=== PATIENT | male | born 1970 | race Caucasian/White ===

== ENCOUNTER 2021-09-04 00:42 | Day surgery (SDC) | payer OTHER, SELFPAY ==
[2021-08-24 11:05] VITALS: BMI 39.9
[2021-09-04 10:15] VITALS: BP 148/85; PULSE 82; RESP 18; TEMP 36.1; O2SAT 98; BMI 38.5
--- NOTE | 2021-09-04 10:35 | WPDANESEPPF ---
Anes - Initial Pre Proc Eval Procedure: Operation Date: 09/04/21 12:30 Proposed Procedures p Screening Colonoscopy - Fernando Otto MD Date/Time: 09/04/21 10:35 Surgeon: Fernando Otto MD Pre Op Diagnosis: family hx of colon ca Patient Data Age: 51 Gender: M Height: 1.8 m Weight: 125.3 kg Last Vital Signs Temp 36.1 C L 09/04/21 10:15 Pulse 82 09/04/21 10:15 Resp 18 09/04/21 10:15 BP 148/85 H 09/04/21 10:15 Pulse Ox 98 09/04/21 10:15 Allergies Allergy/AdvReac Type Severity Reaction Status Date / Time Penicillins Allergy Unknown Unknown Verified 09/04/21 10:25 Home Medications Medication Instructions Recorded Confirmed Type evolocumab 140 mg/mL subcutaneous 140 mg SUB-Q .BI-Weekly ml 11/24/19 09/04/21 History syringe losartan-hydrochlorothiazide 1 tablet PO DAILY 08/24/21 09/04/21 History [Hyzaar] Patient hx anesthesia problems: none Family hx anesthesia problems: none Results Review: All pre-operative results and documents have been reviewed as part of the pre-operative evaluation. [facility] Past Medical History Medical History (Updated 10/06/20 @ 12:12 by JEFF Trinidad) Morbid obesity Obesity, morbid, BMI 40.0-49.9 Social History Social History Smoking status: Never smoker Alcohol intake: current Drinks per week: 2 Living arrangements: with family Spiritual care concerns: No Anes - Eval Final PreProcedure Day of Procedure 09/04/21 10:35 Patient weight: obese Heart: regular rate and rhythm Lungs: clear to auscultation Airway: Mallampati scale class II Neurological: alert and oriented Last oral intake: >/= 8 hours ASA classification: III Emergent: no Anesthetic plan: proceed Anesthesia type and monitoring: general GIVS and standard monitoring Results Review: All pre-operative results and documents have been reviewed as part of the pre-operative evaluation. Informed Consent: The patient's anesthetic plan and its attendant risks and benefits were discussed with the patient/family/POA. Questions were solicited and answers provided to the satisfaction of the patient/family/POA.
[2021-09-04] MEDS: LACTATED RINGERS 1,000 ML 150 ML IV CONT (10:36)
--- NOTE | 2021-09-04 10:59 | PM.HPGS ---
History of Present Illness History of Present Illness Consent: Risks, benefits, and alternatives have been discussed and questions answered. Patient agrees to proceed with procedure. Chief complaint: family hx of colon ca Narrative: Pancho Shoemaker is a 51 year old male here for colonoscopy, mother had colon cancer. Review of Systems Constitutional: Constitutional: Denies headache(s) and Denies weakness Eyes: Eyes: Denies blurry vision ENT: Reports Normal hearing present, Denies headache(s) and Denies neck pain Cardiovascular: Cardiovascular: Denies chest pain and Denies dyspnea Respiratory: Respiratory: Denies dyspnea Gastrointestinal: Gastrointestinal: Reports no additional gastrointestinal complaints Genitourinary: Genitourinary: Denies dysuria Musculoskeletal: Musculoskeletal: Denies neck pain Integumentary/Breasts: Skin/Breast: Denies dry skin Neurologic: Reports Normal hearing present, Denies headache(s) and Denies weakness Psychiatric: Psychiatric: Denies anxiety Endocrine: Endocrine: Denies change in body appearance Hematologic/Lymphatic: Hematologic/Lymphatic: Denies easy bleeding Allergic/Immunologic: Allergic/Immunologic: Denies urticaria PMFSH Past Medical History Medical History (Updated 10/06/20 @ 12:12 by JEFF Trinidad) Morbid obesity Obesity, morbid, BMI 40.0-49.9 Social History Social History Smoking status: Never smoker Alcohol intake: current Drinks per week: 2 Living arrangements: with family Spiritual care concerns: No Meds Home Medications and Allergies Home Medications Medication Instructions Recorded Confirmed Type evolocumab 140 mg/mL subcutaneous 140 mg SUB-Q .BI-Weekly ml 11/24/19 09/04/21 History syringe losartan-hydrochlorothiazide 1 tablet PO DAILY 08/24/21 09/04/21 History [Hyzaar] Allergies Allergy/AdvReac Type Severity Reaction Status Date / Time Penicillins Allergy Unknown Unknown Verified 09/04/21 10:25 Vital Signs Vital Signs - 24 hr 09/04/21 10:15 Temperature 96.9 F L Pulse Rate 82 Respiratory Rate 18 Blood Pressure 148/85 H Pulse Oximetry 98 Exam Const: General: comfortable and no acute distress HENMT: General nose exam: Normal nares present Eyes: General: appearance normal, both eyes and all related structures Neck: Neck: no JVD Resp: Auscultation: clear to auscultation bilaterally Cardio: Rate: regular rate Rhythm: regular rhythm GI: Inspection: non-distended GI Palp: Yes Soft to palpation Skin: General skin exam: normal color Neuro: General: gait normal Speech: normal speech Extrem: General: normal to inspection Psych: Mental Status: mental status grossly normal Assessment and Plan Assessment and plan (1) Family history of colon cancer: Code(s): Z80.0 - Family history of malignant neoplasm of digestive organs Status: Acute Assessment and Plan: colonoscopy
[2021-09-04 11:25] VITALS: BP 124/97; PULSE 73; RESP 18; O2SAT 97
[2021-09-04 11:35] VITALS: BP 128/83; PULSE 70; RESP 16; O2SAT 97
[2021-09-04 11:45] VITALS: BP 130/89; PULSE 66; RESP 16; O2SAT 98
== END 2021-09-04 11:57 | disposition home or self-care (01) ==
PROVIDERS: PCP Family Medicine; Visit Provider Internal Medicine Gastroenterology
PROC: 0DJD8ZZ Inspection of Lower Intestinal Tract, Via Natural or Artificial Opening Endoscopic (ICD-10-PCS; CPT 45378; principal; 2021-09-04 12:30)
DX: Z12.11 Encounter for screening for malignant neoplasm of colon (principal); Z80.0 Family history of malignant neoplasm of digestive organs; D12.4 Benign neoplasm of descending colon; D12.3 Benign neoplasm of transverse colon; K63.5 Polyp of colon; E66.9 Obesity, unspecified; Z68.38 Body mass index [BMI] 38.0-38.9, adult
CPT/HCPCS: 45385; 88305; J2001; J2704; J7120

== ENCOUNTER → 2022-05-21 15:10 | Outpatient (CLI) | payer OTHER, SELFPAY ==
--- NOTE | ~2022-05-21 | US_ITS ---
EXAMINATION: US soft tissue groin RT INDICATION: Right groin pain TECHNIQUE: High-resolution ultrasound is performed in the area of clinical concern in the right groin COMPARISON: None available FINDINGS: No sonographic correlate is identified for the patient's right groin pain. Normal right duc in soft tissues and vasculature are seen. IMPRESSION: 1. No specific sonographic correlate is identified for the reported right groin pain. Further evaluat ion at this time should be based on clinical assessment. Continued follow-up physical examination is recommended. Reviewed, dictated and finalized at location B. IMPRESSION: 1. No specific sonographic correlate is identified for the reported right groin pain. Further evaluation at this time should be based on clinical assessment. Continued follow-up physical examination is recommended.
== END ==
PROVIDERS: PCP Family Medicine; Visit Provider Nurse Practitioner Family
DX: R10.30 Lower abdominal pain, unspecified (principal)
CPT/HCPCS: 76882

== ENCOUNTER 2024-12-14 00:16 | Day surgery (SDC) | payer OTHER, SELFPAY ==
[2024-12-06 10:46] VITALS: BMI 37.8
--- OUTSIDE RECORDS SUMMARY | 2024-12-14 00:19 | XMS_ITS | Clinical Summary ---
Author Organization [facility] Address [address] [place] [address] Phone Care Team Providers Care Document Examiner Name Role Phone Unavailable Primary Care Provider Unavailabl e Social History Tobacco Use Types Packs/Day Years Used Date Smoking Tobacco: Never Assessed Sex and Gender Information Value Date Recorded Sex Assigned at Not on file Legal Sex Male 10:47 AM CDT Gender Identity Not on file Sexual Orientation Not on file Plan of Treatment Health Maintenance Due Date Last Done Comments DTAP/TDAP/TD VACCINES (1 - Tdap) 1989 HEPATITIS B VACCINES (1 of 3 - 19+ 3-dose series) 1989 COLORECTAL SCREENING 2015 Colorectal Cancer Screening 2015 FIT-DNA Q 3 years 2015 FIT/FOBT Q 1 year 2015 Flex Sig/CT Colonography Q 5 years 2015 ZOSTER VACCINE (1 of 2) 2020 INFLUENZA VACCINE (#1) 2024 PNEUMOCOCCAL VACCINE 0-49 YEARS Aged Out No longer eligible based on patient's age to complete this topic
[2024-12-14 06:56] VITALS: BP 139/90; PULSE 72; RESP 18; TEMP 36.1; O2SAT 97; BMI 38.7
[2024-12-14] MEDS: LACTATED RINGERS 1,000 ML 150 ML IV CONT (07:05)
[2024-12-14 07:10] LABS: Glucose Point of Care 145 mg/dl (65-105)
--- NOTE | 2024-12-14 07:10 | WPDANESEPPF ---
Anes - Initial Pre Proc Eval Procedure: Operation Date: 12/14/24 08:00 Proposed Procedures p Colonoscopy - Fernando Otto MD Date/Time: 12/14/24 07:10 Surgeon: Fernando Otto MD Pre Op Diagnosis: Family history of neoplasm Patient Data Age: 54 Gender: M Height: 1.8 m Weight: 125.8 kg Last Vital Signs Temp 36.1 C L 12/14/24 06:56 Pulse 72 12/14/24 06:56 Resp 18 12/14/24 06:56 BP 139/90 12/14/24 06:56 Pulse Ox 97 12/14/24 06:56 O2 Del Method Room Air 12/14/24 06:56 Allergies Allergy/AdvReac Type Severity Reaction Status Date / Time Penicillins Allergy Unknown Unknown Verified 12/14/24 06:55 Home Medications ?Medication ?Instructions ?Recorded ?Confirmed ?Type omeprazole 40 mg capsule,delayed 40 mg PO DAILY #90 caps 09/13/24 12/14/24 Rx release losartan 50 mg-hydrochlorothiazide See Rx Instructions .Route 09/26/24 12/14/24 Rx 12.5 mg tablet .COMPLEX #90 tabs evolocumab 140 mg/mL subcutaneous 140 mg subcut .bi weekly #2 mL 10/16/24 12/14/24 Rx pen injector (Repatha SureClick) tirzepatide 10 mg/0.5 mL 10 mg (0.5 mL) subcut WEEKLY #2 mL 11/08/24 12/14/24 Rx subcutaneous pen injector (Mounjaro) Laboratory Tests 12/14/24 07:07 POC Capillary Glucose 145 H mg/dl (65-105) Patient hx anesthesia problems: none Family hx anesthesia problems: none Results Review: All pre-operative results and documents have been reviewed as part of the pre-operative evaluation. [facility] Past Medical History Medical History BMI 38.0-38.9,adult GERD (gastroesophageal reflux disease) Adenomatous colon polyp Irritable bowel syndrome with diarrhea Groin pain BMI 39.0-39.9,adult Other hyperlipidemia Family History Family History Father Mother Carcinoma of colon Sibling No problems noted. Social History Social History Smoking status: Never smoker Second hand tobacco smoke exposure: Yes Alcohol intake: current Drinks per week: 2 Substance use: never Substance use type: does not use Lack of Transportation: No Lack of Food: Never True Current Housing: I Have Housing Concerned About Future Housing: No Difficulty Paying Gas/Electric Bills: No Difficulty Paying for Meds: No Currently Unemployed: No Education: Bachelor's Degree Difficulty w/ Childcare or Family Care: No Living arrangements: with family Occupation/Education: occupation Additional occupation/education comments: [employer] Gender identity (if verbalized by the patient): Male Spiritual care concerns: No Anes - Eval Final PreProcedure Day of Procedure 12/14/24 07:10 Patient weight: obese Heart: regular rate and rhythm Lungs: clear to auscultation Airway: Mallampati scale class II Neurological: alert and oriented Last oral intake: >/= 8 hours ASA classification: III Emergent: no Anesthetic plan: proceed Anesthesia type and monitoring: general GIVS and standard monitoring Results Review: All pre-operative results and documents have been reviewed as part of the pre-operative evaluation. Informed Consent: The patient's anesthetic plan and its attendant risks and benefits were discussed with the patient/family/POA. Questions were solicited and answers provided to the satisfaction of the patient/family/POA.
--- NOTE | 2024-12-14 08:01 | PM.HPGS ---
History of Present Illness History of Present Illness Consent: Risks, benefits, and alternatives have been discussed and questions answered. Patient agrees to proceed with procedure. Chief complaint: Family history of neoplasm Narrative: Pancho Shoemaker is a 54 year old male with colon polyp in 2020, mother had colon cancer Review of Systems Review of Systems: All systems reviewed & are unremarkable except as noted in HPI and below PMFSH Past Medical History Medical History BMI 38.0-38.9,adult GERD (gastroesophageal reflux disease) Adenomatous colon polyp Irritable bowel syndrome with diarrhea Groin pain BMI 39.0-39.9,adult Other hyperlipidemia Family History Family History Father Mother Carcinoma of colon Sibling No problems noted. Social History Social History Smoking status: Never smoker Second hand tobacco smoke exposure: Yes Alcohol intake: current Drinks per week: 2 Substance use: never Substance use type: does not use Lack of Transportation: No Lack of Food: Never True Current Housing: I Have Housing Concerned About Future Housing: No Difficulty Paying Gas/Electric Bills: No Difficulty Paying for Meds: No Currently Unemployed: No Education: Bachelor's Degree Difficulty w/ Childcare or Family Care: No Living arrangements: with family Occupation/Education: occupation Additional occupation/education comments: [employer] Gender identity (if verbalized by the patient): Male Spiritual care concerns: No Meds Home Medications and Allergies Home Medications ?Medication ?Instructions ?Recorded ?Confirmed ?Type omeprazole 40 mg capsule,delayed 40 mg PO DAILY #90 caps 09/13/24 12/14/24 Rx release losartan 50 mg-hydrochlorothiazide See Rx Instructions .Route 09/26/24 12/14/24 Rx 12.5 mg tablet .COMPLEX #90 tabs evolocumab 140 mg/mL subcutaneous 140 mg subcut .bi weekly #2 mL 10/16/24 12/14/24 Rx pen injector (Jeffery Kwok) tirzepatide 10 mg/0.5 mL 10 mg (0.5 mL) subcut WEEKLY #2 mL 11/08/24 12/14/24 Rx subcutaneous pen injector (Tien) Allergies Allergy/AdvReac Type Severity Reaction Status Date / Time Penicillins Allergy Unknown Unknown Verified 12/14/24 06:55 Vital Signs Vital Signs - 24 hr 12/14/24 06:56 Temperature 97 F L Pulse Rate 72 Respiratory Rate 18 Blood Pressure 139/90 Pulse Oximetry 97 Oxygen Delivery Room Air Exam Const: General: comfortable and no acute distress HENMT: Face/Nose/Sinus: Normal nares present Eyes: General: appearance normal, both eyes and all related structures Neck: Neck: no JVD Resp: Auscultation: clear to auscultation bilaterally Cardio: Rate: regular rate Rhythm: regular rhythm GI: Inspection: non-distended GI Palp: Yes Soft to palpation Skin: General skin exam: normal color Neuro: General: gait normal Speech: normal speech Extrem: General: normal to inspection Psych: Mental Status: mental status grossly normal Assessment and Plan Assessment and plan (1) Family history of colon cancer: Code(s): Z80.0 - Family history of malignant neoplasm of digestive organs Status: Acute Assessment and Plan: colonoscopy (2) Adenomatous colon polyp: Code(s): D12.6 - Benign neoplasm of colon, unspecified Status: Acute
[2024-12-14 08:18] VITALS: BP 116/78; PULSE 76; RESP 20; O2SAT 98
[2024-12-14 08:28] VITALS: BP 114/76; PULSE 77; RESP 22; O2SAT 100
[2024-12-14 08:38] VITALS: BP 132/86; PULSE 71; RESP 20; O2SAT 97
== END 2024-12-14 08:48 | disposition home or self-care (01) ==
PROVIDERS: PCP Nurse Practitioner Family; Visit Provider Internal Medicine Gastroenterology
PROC: 0DJD8ZZ Inspection of Lower Intestinal Tract, Via Natural or Artificial Opening Endoscopic (ICD-10-PCS; CPT 45378; principal; 2024-12-14 08:00)
DX: Z12.11 Encounter for screening for malignant neoplasm of colon (principal); D12.3 Benign neoplasm of transverse colon; D12.4 Benign neoplasm of descending colon; K64.8 Other hemorrhoids; Z80.0 Family history of malignant neoplasm of digestive organs; Z79.85 Long-term (current) use of injectable non-insulin antidiabetic drugs; E66.9 Obesity, unspecified; Z68.38 Body mass index [BMI] 38.0-38.9, adult
CPT/HCPCS: 45385; 82948; J2003; J2704; J7120